=== PATIENT | male | born 1985 | race Two or more races ===

== ENCOUNTER 2017-12-27 17:37 | Emergency (ER) | payer OTHER ==
[~2017-12-27] VITALS: Ht 188 cm; Wt 79.7 kg
[2017-12-27 17:39] VITALS: BP 130/78
[2017-12-27] MEDS ORDERED: HYDROcodone/APAP 5/325 TABLET PO ONE (18:30)
[2017-12-27] MEDS ORDERED: ONDANSETRON ODT 4 MG PO ONE (18:30)
[2017-12-27] MEDS ORDERED: HYDROcodone/APAP 5/325 TABLET ONE (18:39)
[2017-12-27] MEDS ORDERED: ONDANSETRON ODT 4 MG ONE (18:39)
[2017-12-27] MEDS ORDERED: IBUPROFEN 200 MG TABLET PO ONE (19:30)
[2017-12-27] MEDS ORDERED: IBUPROFEN 200 MG TABLET ONE (19:35)
== END 2017-12-27 19:49 | disposition home or self-care (01) ==
LOC: ED 19:20
DX: S06.0X0A Concussion without loss of consciousness, initial encounter (principal); S16.1XXA Strain of muscle, fascia and tendon at neck level, initial encounter; Y04.0XXA Assault by unarmed brawl or fight, initial encounter; Y93.89 Activity, other specified; Y92.009 Unspecified place in unspecified non-institutional (private) residence as the place of occurrence of the external cause; Y99.8 Other external cause status
CPT/HCPCS: 70450; 72125; 99284; Q0162